=== PATIENT | male | born 1945 | race Caucasian/White ===

== ENCOUNTER 2019-03-20 13:01 | Outpatient (CLI) | payer BC | END 2019-03-20 23:59 | disposition home or self-care (01) | LOC: WOUND 13:01 | PROVIDERS: ATTEND Internal Medicine | DX: I87.312 Chronic venous hypertension (idiopathic) with ulcer of left lower extremity (principal); L97.222 Non-pressure chronic ulcer of left calf with fat layer exposed; M51.16 Intervertebral disc disorders with radiculopathy, lumbar region; L03.116 Cellulitis of left lower limb | CPT/HCPCS: 97597; 97598; 99204 ==

== ENCOUNTER 2019-03-27 13:31 | Outpatient (CLI) | payer BC | END 2019-03-27 23:59 | disposition home or self-care (01) | LOC: WOUND 13:31 | PROVIDERS: ATTEND Internal Medicine | DX: I87.312 Chronic venous hypertension (idiopathic) with ulcer of left lower extremity (principal); L97.222 Non-pressure chronic ulcer of left calf with fat layer exposed; M51.16 Intervertebral disc disorders with radiculopathy, lumbar region | CPT/HCPCS: 97597 ==